=== PATIENT | male | born 1985 | race Hispanic/Latino ===

== ENCOUNTER 2017-08-24 11:44 | Emergency (ER) | payer SELFPAY ==
[2017-08-24 12:06] LABS: APPEARANCE,URINE CLEAR (CLEAR); BILIRUBIN,URINE NEGATIVE (NEGATIVE); COLOR,URINE YELLOW (YELLOW); GLUCOSE, URINE (UA) NEGATIVE (NEGATIVE); KETONES,URINE 5 mg/dL (NEGATIVE); LEUKOCYTE ESTERASE ,URINE NEGATIVE (NEGATIVE); NITRATE,URINE NEGATIVE (NEGATIVE); OCCULT BLOOD,URINE NEGATIVE (NEGATIVE); PROTEIN,URINE NEGATIVE (NEGATIVE); UROBILINOGEN,URINE 0.2 mg/dL (0.2-1.0)
[2017-08-24 12:13] LABS: AMORPHOUS SEDIMENT,UR Trace /LPF (None Seen); BACTERIA,URINE Few /HPF (None Seen); MUCUS,URINE Moderate LPF (None Seen); RBC,URINE None Seen /HPF (0-1); SQUAMOUS EPITHELIAL CELL,UR Few /LPF (0-2); WBC,URINE None Seen /HPF (0-1)
[2017-08-24 12:14] LABS: AMPHET/METH SCREEN,URINE NEGATIVE (NEGATIVE); BARBITURATE SCREEN, URINE NEGATIVE (NEGATIVE); BENZODIAZEPINES SCREEN,URINE NEGATIVE (NEGATIVE); CANNABINOID SCREEN,URINE NEGATIVE (NEGATIVE); COCAINE SCREEN,URINE NEGATIVE (NEGATIVE); OPIATE SCREEN,URINE NEGATIVE (NEGATIVE); PHENCYCLIDINE SCREEN,URINE NEGATIVE (NEGATIVE)
[2017-08-24] MEDS ORDERED: KETOROLAC TROMETHAMINE 60 MG/2 ML VIAL ONE (12:29)
[2017-08-24] MEDS ORDERED: CYCLOBENZAPRINE HCL 10 MG TABLET ONE (12:30)
== END 2017-08-24 13:18 | disposition home or self-care (01) ==
LOC: EDH 11:44
DX: G44.209 Tension-type headache, unspecified, not intractable (principal); Z72.0 Tobacco use
CPT/HCPCS: 80305; 81001; 96372; 99284; J1885

== ENCOUNTER 2020-07-23 10:12 | Emergency (ER) | payer SELFPAY ==
[2020-07-23 11:06] LABS: BASOPHILS % (AUTO) 0.3 % (0.0-5.0); EOSINOPHILS % (AUTO) 1.6 % (0.0-8.0); HEMATOCRIT 36.8 % (42-54); LYMPHOCYTES % (AUTO) 22.2 % (21.0-51.0); MEAN CORPUSCULAR HEMOGLOBIN 25.8 pg (27.0-33.0); MEAN CORPUSCULAR HGB CONC 32.1 g/dL (32.0-36.0); MEAN CORPUSCULAR VOLUME 80.3 fL (79-99); MONOCYTES % (AUTO) 7.5 % (3.0-13.0); PLATELET COUNT (AUTO) 298 K/uL (130-400); RED BLOOD CELL COUNT(AUTO) 4.58 MIL/uL (4.50-6.20); RED CELL DISTRIBUTION WIDTH 13.7 % (11.0-15.5); WHITE BLOOD COUNT (AUTO) 7.5 K/uL (4.8-10.8)
[2020-07-23 11:20] LABS: CREATININE 1.1 mg/dL (0.5-1.5)
[2020-07-23 11:27] LABS: ALBUMIN 3.6 g/dL (3.5-5.0); BILIRUBIN,TOTAL 1.1 mg/dL (0.2-1.0); TOTAL PROTEIN, SERUM 8.3 g/dL (6.0-8.3)
[2020-07-23] MEDS ORDERED: HYDROCODONE/ACETAMINOPHEN 10/325 MG TAB ONE (12:40)
[2020-10-01] MEDS ORDERED: FERR324T4 PO (12:55)
== END 2020-07-23 13:45 | disposition home or self-care (01) ==
LOC: EDH 10:12
DX: M77.41 Metatarsalgia, right foot (principal); Z72.0 Tobacco use
CPT/HCPCS: 36415; 73630; 80053; 83605; 85025; 87040; 87077; 87186

== ENCOUNTER 2020-09-14 16:27 | Emergency (ER) | payer OTHER ==
[2020-09-14] MEDS ORDERED: HYDROCODONE/ACETAMINOPHEN 5/325 MG TAB ONE (17:01)
[2020-09-14] MEDS ORDERED: IBUPROFEN 600 MG TABLET ONE (17:01)
[2020-09-14 17:32] LABS: AMPHET/METH SCREEN,URINE NEGATIVE (NEGATIVE); BARBITURATE SCREEN, URINE NEGATIVE (NEGATIVE); BENZODIAZEPINES SCREEN,URINE NEGATIVE (NEGATIVE); CANNABINOID SCREEN,URINE NEGATIVE (NEGATIVE); COCAINE SCREEN,URINE NEGATIVE (NEGATIVE); OPIATE SCREEN,URINE NEGATIVE (NEGATIVE); PHENCYCLIDINE SCREEN,URINE NEGATIVE (NEGATIVE)
[2020-10-01] MEDS ORDERED: FERR324T4 PO (12:55)
== END 2020-09-14 18:44 | disposition home or self-care (01) ==
LOC: EDH 16:27
DX: S43.204A Unspecified dislocation of right sternoclavicular joint, initial encounter (principal); M10.9 Gout, unspecified; Z72.0 Tobacco use; X50.9XXA Other and unspecified overexertion or strenuous movements or postures, initial encounter; Y93.89 Activity, other specified; Y92.098 Other place in other non-institutional residence as the place of occurrence of the external cause; Y99.8 Other external cause status
CPT/HCPCS: 71045; 73000; 80305

== ENCOUNTER 2020-09-20 02:22 | Inpatient (IN) | payer OTHER ==
[~2020-09-20] VITALS: Ht 170.2 cm; Wt 95.0 kg
[2020-09-20 02:33] LABS: BASOPHILS % (AUTO) 0.1 % (0.0-5.0); EOSINOPHILS % (AUTO) 1.9 % (0.0-8.0); HEMATOCRIT 29.4 % (42-54); MEAN CORPUSCULAR HEMOGLOBIN 23.6 pg (27.0-33.0); MEAN CORPUSCULAR HGB CONC 31.6 g/dL (32.0-36.0); MEAN CORPUSCULAR VOLUME 74.6 fL (79-99); MONOCYTES % (AUTO) 6.9 % (3.0-13.0); NEUTROPHILS % (AUTO) 73.8 % (40.0-77.0); PLATELET COUNT (AUTO) 317 K/uL (130-400); RED BLOOD CELL COUNT(AUTO) 3.94 MIL/uL (4.50-6.20); RED CELL DISTRIBUTION WIDTH 15.5 % (11.0-15.5); WHITE BLOOD COUNT (AUTO) 10.6 K/uL (4.8-10.8)
[2020-09-20] MEDS ORDERED: 0.9%NACL 1000ML 1,000 ML IV ONE ×3 (02:37→07:52)
[2020-09-20] MEDS ORDERED: KETOROLAC 30MG VIAL (30MG/ML) ONE (02:39)
[2020-09-20 02:44] LABS: CREATININE 1.6 mg/dL (0.5-1.5); POTASSIUM 4.1 mmol/L (3.5-5.1)
[2020-09-20 02:45] LABS: INR 1.08 (0.85-1.15); PROTHROMBIN TIME 11.7 SEC (9.6-11.6)
[2020-09-20 02:46] LABS: PARTIAL THROMBOPLASTIN TIME 26.5 SEC (26.3-35.5)
[2020-09-20 02:48] LABS: ALBUMIN 3.1 g/dL (3.5-5.0); BILIRUBIN,TOTAL 0.7 mg/dL (0.2-1.0); TOTAL PROTEIN, SERUM 8.2 g/dL (6.0-8.3); URIC ACID 4.9 mg/dL (2.6-7.2)
[2020-09-20] MEDS ORDERED: ONDANSETRON 4MG INJ ONE (04:04)
[2020-09-20] MEDS ORDERED: HYDROMORPHONE 1 MG INJ ONE (04:05)
[2020-09-20 04:52] LABS: APPEARANCE,URINE TURBID (CLEAR); BILIRUBIN,URINE LARGE (NEGATIVE); GLUCOSE, URINE (UA) 250 mg/dL (NEGATIVE); KETONES,URINE 15 mg/dL (NEGATIVE); LEUKOCYTE ESTERASE ,URINE MODERATE (NEGATIVE); NITRATE,URINE POSITIVE (NEGATIVE); OCCULT BLOOD,URINE LARGE (NEGATIVE); PH,URINE 6.5 (5.0-8.0); PROTEIN,URINE >=300 mg/dL (NEGATIVE)
[2020-09-20 04:56] LABS: COLOR,URINE RED (YELLOW)
[2020-09-20 04:59] LABS: BACTERIA,URINE Few /HPF (None Seen); RBC,URINE Full Field /HPF (0-1); SQUAMOUS EPITHELIAL CELL,UR Rare /HPF (0-2)
[2020-09-20] MEDS ORDERED: CEFTRIAXONE 1G VIAL ONE (05:53)
[2020-09-20] MEDS ORDERED: IOHEXOL 350 MG/ML 100ML INFUS..BTL IV ONE (05:54)
[2020-09-20] MEDS ORDERED: CEFTRIAXONE 1G VIAL IV SCH (07:00)
[2020-09-20] MEDS ORDERED: ONDANSETRON 4MG INJ IV PRN (07:00)
[2020-09-20] MEDS ORDERED: LACTULOSE 20 GM/30 ML UDCUP PO PRN (07:00)
[2020-09-20 07:30] LABS: HEMOGLOBIN A1C 5.9 % (4.0-6.0)
[2020-09-20 07:49] LABS: HEMATOCRIT 25.7 % (42-54)
[2020-09-20] MEDS ORDERED: FAMOTIDINE 20MG VIAL IV ONE (07:51)
[2020-09-20 08:46] LABS: AMPHET/METH SCREEN,URINE NEGATIVE (NEGATIVE); BARBITURATE SCREEN, URINE NEGATIVE (NEGATIVE); BENZODIAZEPINES SCREEN,URINE NEGATIVE (NEGATIVE); CANNABINOID SCREEN,URINE NEGATIVE (NEGATIVE); COCAINE SCREEN,URINE NEGATIVE (NEGATIVE); OPIATE SCREEN,URINE NEGATIVE (NEGATIVE); PHENCYCLIDINE SCREEN,URINE NEGATIVE (NEGATIVE)
[2020-09-20] MEDS: FAMOTIDINE 20MG VIAL IV SCH (09:00)
[2020-09-20] MEDS ORDERED: 0.9% NACL 250ML 250 ML IV ONE (09:54)
[2020-09-20] MEDS ORDERED: MORPHINE 2 MG SYG ONE ×2 (10:33→16:22)
[2020-09-20 14:09] LABS: HEMATOCRIT 27.9 % (42-54)
[2020-09-20] MEDS: 0.9%NACL 1000ML 1,000 ML IV SCH ×3 (15:00→23:00)
[2020-09-20 19:00] VITALS: BP 147/89
[2020-09-20 20:00] VITALS: BP 138/79
[2020-09-20] MEDS: ACETAMINOPHEN 325 MG TAB PO PRN (20:21)
[2020-09-20 21:00] VITALS: BP 128/72
[2020-09-20 21:35] LABS: HEMATOCRIT 28.3 % (42-54)
[2020-09-20 22:00] VITALS: BP 124/71
[2020-09-20 23:00] VITALS: BP 133/65
[2020-09-21] VITALS (35 sets, daily range): BP systolic 112–156; BP diastolic 60–90
[2020-09-21 03:42] LABS: BASOPHILS % (AUTO) 0.1 % (0.0-5.0); EOSINOPHILS % (AUTO) 0.9 % (0.0-8.0); HEMATOCRIT 28.8 % (42-54); MEAN CORPUSCULAR HEMOGLOBIN 24.1 pg (27.0-33.0); MEAN CORPUSCULAR HGB CONC 31.3 g/dL (32.0-36.0); MONOCYTES % (AUTO) 9.8 % (3.0-13.0); NEUTROPHILS % (AUTO) 70.7 % (40.0-77.0); PLATELET COUNT (AUTO) 275 K/uL (130-400); RED BLOOD CELL COUNT(AUTO) 3.74 MIL/uL (4.50-6.20); RED CELL DISTRIBUTION WIDTH 15.3 % (11.0-15.5); WHITE BLOOD COUNT (AUTO) 7.9 K/uL (4.8-10.8)
[2020-09-21 03:53] LABS: CREATININE 1.8 mg/dL (0.5-1.5); POTASSIUM 4.1 mmol/L (3.5-5.1)
[2020-09-21] MEDS: ACETAMINOPHEN 325 MG TAB PO PRN ×3 (04:50→19:31)
[2020-09-21] MEDS: CEFTRIAXONE 1G VIAL IV SCH (05:02)
[2020-09-21] MEDS: 0.9%NACL 1000ML 1,000 ML IV SCH ×4 (05:44→23:19)
[2020-09-21] MEDS: MORPHINE 2 MG SYG IV PRN ×2 (08:30→15:04)
[2020-09-21] MEDS: FAMOTIDINE 20MG VIAL IV SCH (08:30)
[2020-09-21] MEDS ORDERED: LACTATED RINGERS 1000ML 1,000 ML IV ONE (11:44)
[2020-09-21] MEDS ORDERED: LIDOCAINE PF 100MG/5ML (2%) SYRINGE 5ML ONE (12:46)
[2020-09-21] MEDS ORDERED: SUCCINYLCHOLINE 200MG/10ML SYR ONE (12:46)
[2020-09-21] MEDS ORDERED: PROPOFOL 10 MG/ML 20ML VIAL IV ONE (12:47)
[2020-09-21] MEDS ORDERED: FENTANYL CITRATE PF 50 MCG/1 ML 2ML VIAL ONE ×2 (12:47→13:15)
[2020-09-21] MEDS ORDERED: IOHEXOL-350 50ML VIAL IV ONE (13:34)
[2020-09-21] MEDS ORDERED: ONDANSETRON 4MG INJ ONE (13:37)
[2020-09-21 15:42] LABS: HEMATOCRIT 31.1 % (42-54)
[2020-09-21] MEDS: TRAMADOL HCL 50 MG TABLET PO PRN ×2 (18:01→21:22)
[2020-09-22] VITALS (21 sets, daily range): BP systolic 114–136; BP diastolic 68–82
[2020-09-22] MEDS: TRAMADOL HCL 50 MG TABLET PO PRN ×3 (02:38→20:56)
[2020-09-22 04:12] LABS: BASOPHILS % (AUTO) 0.2 % (0.0-5.0); EOSINOPHILS % (AUTO) 0.6 % (0.0-8.0); HEMATOCRIT 29.2 % (42-54); LYMPHOCYTES % (AUTO) 15.2 % (21.0-51.0); MEAN CORPUSCULAR HEMOGLOBIN 24.1 pg (27.0-33.0); MEAN CORPUSCULAR HGB CONC 31.2 g/dL (32.0-36.0); MEAN CORPUSCULAR VOLUME 77.5 fL (79-99); MONOCYTES % (AUTO) 7.7 % (3.0-13.0); NEUTROPHILS % (AUTO) 75.8 % (40.0-77.0); PLATELET COUNT (AUTO) 285 K/uL (130-400); RED BLOOD CELL COUNT(AUTO) 3.77 MIL/uL (4.50-6.20); RED CELL DISTRIBUTION WIDTH 15.5 % (11.0-15.5); WHITE BLOOD COUNT (AUTO) 9.3 K/uL (4.8-10.8)
[2020-09-22 04:19] LABS: CREATININE 1.8 mg/dL (0.5-1.5); POTASSIUM 4.3 mmol/L (3.5-5.1)
[2020-09-22] MEDS: 0.9%NACL 1000ML 1,000 ML IV SCH ×3 (05:11→22:22)
[2020-09-22] MEDS: CEFTRIAXONE 1G VIAL IV SCH (05:13)
[2020-09-22] MEDS: LACTULOSE 20 GM/30 ML UDCUP PO SCH ×3 (08:53→20:45)
[2020-09-22] MEDS: TAMSULOSIN HCL 0.4 MG CAP.ER.24H PO SCH (08:53)
[2020-09-22] MEDS: FERROUS SULFATE 325 MG TABLET.DR PO SCH ×3 (08:53→20:56)
[2020-09-22] MEDS: FAMOTIDINE 20MG VIAL IV SCH (08:53)
[2020-09-22] MEDS: ACETAMINOPHEN 325 MG TAB PO PRN (14:39)
[2020-09-23] VITALS: BP 130/78
[2020-09-23] MEDS: ACETAMINOPHEN 325 MG TAB PO PRN ×2 (01:31→05:37)
[2020-09-23] MEDS: LACTULOSE 20 GM/30 ML UDCUP PO SCH ×4 (02:40→19:55)
[2020-09-23 03:00] VITALS: BP 116/57
[2020-09-23] MEDS: 0.9%NACL 1000ML 1,000 ML IV SCH ×2 (03:35→15:00)
[2020-09-23] MEDS: TRAMADOL HCL 50 MG TABLET PO PRN ×3 (03:36→23:46)
[2020-09-23] MEDS: CEFTRIAXONE 1G VIAL IV SCH (05:02)
[2020-09-23 06:16] LABS: BASOPHILS % (AUTO) 0.1 % (0.0-5.0); HEMATOCRIT 28.2 % (42-54); LYMPHOCYTES % (AUTO) 19.7 % (21.0-51.0); MEAN CORPUSCULAR HEMOGLOBIN 23.7 pg (27.0-33.0); MEAN CORPUSCULAR HGB CONC 30.9 g/dL (32.0-36.0); MEAN CORPUSCULAR VOLUME 76.8 fL (79-99); MONOCYTES % (AUTO) 8.8 % (3.0-13.0); NEUTROPHILS % (AUTO) 69.7 % (40.0-77.0); PLATELET COUNT (AUTO) 298 K/uL (130-400); RED BLOOD CELL COUNT(AUTO) 3.67 MIL/uL (4.50-6.20); RED CELL DISTRIBUTION WIDTH 15.4 % (11.0-15.5); WHITE BLOOD COUNT (AUTO) 7.1 K/uL (4.8-10.8)
[2020-09-23 06:33] LABS: CREATININE 1.4 mg/dL (0.5-1.5); POTASSIUM 3.6 mmol/L (3.5-5.1)
[2020-09-23 07:00] VITALS: BP 126/74
[2020-09-23] MEDS: FERROUS SULFATE 325 MG TABLET.DR PO SCH ×3 (08:41→19:54)
[2020-09-23] MEDS: TAMSULOSIN HCL 0.4 MG CAP.ER.24H PO SCH (08:42)
[2020-09-23] MEDS: FAMOTIDINE 20MG VIAL IV SCH (08:43)
[2020-09-23 11:30] VITALS: BP 119/74
[2020-09-23] MEDS ORDERED: IOHEXOL 350 MG/ML 100ML INFUS..BTL IV ONE (12:28)
[2020-09-23 16:00] VITALS: BP 122/78
[2020-09-23 20:16] VITALS: BP 124/76
[2020-09-24 00:16] VITALS: BP 127/70
[2020-09-24] MEDS: LACTULOSE 20 GM/30 ML UDCUP PO SCH ×4 (02:45→19:56)
[2020-09-24 04:16] VITALS: BP 122/73
[2020-09-24] MEDS: 0.9%NACL 1000ML 1,000 ML IV SCH ×4 (04:56→21:14)
[2020-09-24] MEDS: CEFTRIAXONE 1G VIAL IV SCH (04:57)
[2020-09-24] MEDS: TRAMADOL HCL 50 MG TABLET PO PRN ×3 (04:59→21:03)
[2020-09-24 06:21] LABS: BASOPHILS % (AUTO) 0.3 % (0.0-5.0); EOSINOPHILS % (AUTO) 0.4 % (0.0-8.0); HEMATOCRIT 27.3 % (42-54); LYMPHOCYTES % (AUTO) 18.1 % (21.0-51.0); MEAN CORPUSCULAR HEMOGLOBIN 24.4 pg (27.0-33.0); MEAN CORPUSCULAR HGB CONC 31.9 g/dL (32.0-36.0); MEAN CORPUSCULAR VOLUME 76.7 fL (79-99); MONOCYTES % (AUTO) 8.2 % (3.0-13.0); NEUTROPHILS % (AUTO) 72.4 % (40.0-77.0); PLATELET COUNT (AUTO) 309 K/uL (130-400); RED BLOOD CELL COUNT(AUTO) 3.56 MIL/uL (4.50-6.20); RED CELL DISTRIBUTION WIDTH 15.6 % (11.0-15.5); WHITE BLOOD COUNT (AUTO) 7.7 K/uL (4.8-10.8)
[2020-09-24 06:36] LABS: CREATININE 1.5 mg/dL (0.5-1.5); POTASSIUM 3.8 mmol/L (3.5-5.1)
[2020-09-24 08:00] VITALS: BP 127/71
[2020-09-24] MEDS: TAMSULOSIN HCL 0.4 MG CAP.ER.24H PO SCH (08:45)
[2020-09-24] MEDS: FERROUS SULFATE 325 MG TABLET.DR PO SCH ×3 (08:46→19:58)
[2020-09-24] MEDS: FAMOTIDINE 20MG TAB PO SCH (08:46)
[2020-09-24 12:00] VITALS: BP 124/72
[2020-09-24 16:00] VITALS: BP 122/72
[2020-09-24 16:06] LABS: HEMATOCRIT 29.1 % (42-54)
[2020-09-24 20:16] VITALS: BP 128/79
[2020-09-25 00:13] VITALS: BP 133/82
[2020-09-25] MEDS: LACTULOSE 20 GM/30 ML UDCUP PO SCH ×2 (02:45→09:59)
[2020-09-25 04:27] VITALS: BP 127/71
[2020-09-25] MEDS: CEFTRIAXONE 1G VIAL IV SCH (05:22)
[2020-09-25] MEDS: TRAMADOL HCL 50 MG TABLET PO PRN (05:27)
[2020-09-25 05:34] LABS: BASOPHILS % (AUTO) 0.2 % (0.0-5.0); EOSINOPHILS % (AUTO) 0.7 % (0.0-8.0); HEMATOCRIT 27.4 % (42-54); LYMPHOCYTES % (AUTO) 16.3 % (21.0-51.0); MEAN CORPUSCULAR HEMOGLOBIN 23.9 pg (27.0-33.0); MONOCYTES % (AUTO) 6.6 % (3.0-13.0); NEUTROPHILS % (AUTO) 75.3 % (40.0-77.0); PLATELET COUNT (AUTO) 331 K/uL (130-400); RED BLOOD CELL COUNT(AUTO) 3.56 MIL/uL (4.50-6.20); RED CELL DISTRIBUTION WIDTH 15.7 % (11.0-15.5); WHITE BLOOD COUNT (AUTO) 8.2 K/uL (4.8-10.8)
[2020-09-25 05:49] LABS: CREATININE 1.3 mg/dL (0.5-1.5); POTASSIUM 4.1 mmol/L (3.5-5.1)
[2020-09-25 07:52] VITALS: BP 114/67
[2020-09-25] MEDS: FERROUS SULFATE 325 MG TABLET.DR PO SCH (09:59)
[2020-09-25] MEDS: FAMOTIDINE 20MG TAB PO SCH (09:59)
[2020-09-25] MEDS: TAMSULOSIN HCL 0.4 MG CAP.ER.24H PO SCH (09:59)
[2020-09-25 11:12] VITALS: BP 119/72
[2020-09-25] MEDS ORDERED: AMOX500C2 PO (11:29)
[2020-09-25] MEDS ORDERED: FERR324T4 PO (11:29)
[2020-09-25] MEDS ORDERED: TAMS-1 PO (11:29)
[2020-10-01] MEDS ORDERED: FERR324T4 PO (12:55)
== END 2020-09-25 15:00 | disposition home or self-care (01) | DRG 958 ==
LOC: EDH 02:22 → EDHIP 06:50 → 2DH 19:16 → 3DH 09-23 02:40
PROVIDERS: ADMIT Internal Medicine; ATTEND Internal Medicine
PROC: 0TC68ZZ Extirpation of Matter from Right Ureter, Via Natural or Artificial Opening Endoscopic (ICD-10-PCS; principal; 2020-09-20)
PROC: 0TCB8ZZ Extirpation of Matter from Bladder, Via Natural or Artificial Opening Endoscopic (ICD-10-PCS; 2020-09-20)
PROC: 0T767DZ Dilation of Right Ureter with Intraluminal Device, Via Natural or Artificial Opening (ICD-10-PCS; 2020-09-20)
PROC: BT1D1ZZ Fluoroscopy of Right Kidney, Ureter and Bladder using Low Osmolar Contrast (ICD-10-PCS; 2020-09-20)
PROC: 30233N1 Transfusion of Nonautologous Red Blood Cells into Peripheral Vein, Percutaneous Approach (ICD-10-PCS; 2020-09-20)
DX: S37.011A Minor contusion of right kidney, initial encounter (principal); S36.030A Superficial (capsular) laceration of spleen, initial encounter; D62 Acute posthemorrhagic anemia; E87.1 Hypo-osmolality and hyponatremia; E44.0 Moderate protein-calorie malnutrition; N17.9 Acute kidney failure, unspecified; N10 Acute pyelonephritis; N32.89 Other specified disorders of bladder; R33.8 Other retention of urine; N28.89 Other specified disorders of kidney and ureter; S43.004A Unspecified dislocation of right shoulder joint, initial encounter; R74.8 Abnormal levels of other serum enzymes; M10.9 Gout, unspecified; F17.210 Nicotine dependence, cigarettes, uncomplicated; X58.XXXA Exposure to other specified factors, initial encounter; K21.9 Gastro-esophageal reflux disease without esophagitis; B95.2 Enterococcus as the cause of diseases classified elsewhere; Z68.32 Body mass index [BMI] 32.0-32.9, adult; Y93.89 Activity, other specified; Y92.89 Other specified places as the place of occurrence of the external cause; Y99.8 Other external cause status; Z87.828 Personal history of other (healed) physical injury and trauma; I77.0 Arteriovenous fistula, acquired
CPT/HCPCS: 36415; 71250; 74018; 74174; 74176; 74177; 76705; 76856; 80048; 80053; 80305; 81001; 82150; 83036; 83690; 84550; 85014; 85018; 85025; 85610; 85730; 86850; 86900; 86901; 86923; 87077; 87088; 87186; A4354; C1758; C1769; C2617; G0378; J0330; J0696; J1170; J1885; J2001; J2405; J2704; J3010; J3490; J7030; J7050; J7120; P9016; Q9967

== ENCOUNTER 2020-09-28 00:56 | Inpatient (IN) | payer OTHER ==
[~2020-09-28] VITALS: Ht 170.2 cm; Wt 90.1 kg
[~2020-09-28 00:56] MED LIST: AMOX500C2 PO; FERR324T4 PO; TAMS-1 PO
[2020-09-28 01:22] LABS: BASOPHILS % (AUTO) 0.3 % (0.0-5.0); EOSINOPHILS % (AUTO) 0.3 % (0.0-8.0); HEMATOCRIT 29.2 % (42-54); LYMPHOCYTES % (AUTO) 22.6 % (21.0-51.0); MEAN CORPUSCULAR HEMOGLOBIN 24.5 pg (27.0-33.0); MEAN CORPUSCULAR HGB CONC 31.5 g/dL (32.0-36.0); MEAN CORPUSCULAR VOLUME 77.7 fL (79-99); MONOCYTES % (AUTO) 7.9 % (3.0-13.0); NEUTROPHILS % (AUTO) 67.9 % (40.0-77.0); PLATELET COUNT (AUTO) 453 K/uL (130-400); RED BLOOD CELL COUNT(AUTO) 3.76 MIL/uL (4.50-6.20); RED CELL DISTRIBUTION WIDTH 15.5 % (11.0-15.5); WHITE BLOOD COUNT (AUTO) 8.6 K/uL (4.8-10.8)
[2020-09-28] MEDS ORDERED: 0.9%NACL 1000ML 1,000 ML IV ONE ×2 (01:29→03:11)
[2020-09-28 01:33] LABS: APPEARANCE,URINE CLOUDY (CLEAR); BILIRUBIN,URINE NEGATIVE (NEGATIVE); COLOR,URINE RED (YELLOW); GLUCOSE, URINE (UA) 100 mg/dL (NEGATIVE); KETONES,URINE 15 mg/dL (NEGATIVE); LEUKOCYTE ESTERASE ,URINE MODERATE (NEGATIVE); NITRATE,URINE POSITIVE (NEGATIVE); OCCULT BLOOD,URINE LARGE (NEGATIVE); PH,URINE 8.5 (5.0-8.0); PROTEIN,URINE >=300 mg/dL (NEGATIVE)
[2020-09-28 01:34] LABS: CREATININE 1.2 mg/dL (0.5-1.5); POTASSIUM 4.2 mmol/L (3.5-5.1)
[2020-09-28 01:35] LABS: INR 1.04 (0.85-1.15); PROTHROMBIN TIME 11.3 SEC (9.6-11.6)
[2020-09-28 01:37] LABS: PARTIAL THROMBOPLASTIN TIME 26.1 SEC (26.3-35.5)
[2020-09-28 01:38] LABS: ALBUMIN 3.2 g/dL (3.5-5.0); BILIRUBIN,TOTAL 0.4 mg/dL (0.2-1.0); TOTAL PROTEIN, SERUM 8.2 g/dL (6.0-8.3)
[2020-09-28 01:54] LABS: BACTERIA,URINE Few /HPF (None Seen); RBC,URINE TNTC /HPF (0-1)
[2020-09-28] MEDS ORDERED: MORPHINE 4 MG SYG ONE (03:09)
[2020-09-28] MEDS ORDERED: ONDANSETRON 4MG INJ ONE (03:09)
[2020-09-28] MEDS ORDERED: CEFTRIAXONE 1G VIAL ONE (03:09)
[2020-09-28] MEDS ORDERED: 0.9%NACL 50ML 50 ML IV ONE (03:10)
[2020-09-28] MEDS ORDERED: NITROGLYCERIN 0.4 MG SL TAB SL PRN (03:45)
[2020-09-28] MEDS ORDERED: ACETAMINOPHEN 325 MG TAB PO PRN (03:45)
[2020-09-28] MEDS ORDERED: MORPHINE 2 MG SYG IVP ONE (04:00)
[2020-09-28] MEDS ORDERED: MORPHINE 2 MG SYG ONE ×2 (04:04→06:40)
[2020-09-28] MEDS ORDERED: MORPHINE 2 MG SYG IM PRN (04:15)
[2020-09-28 04:51] LABS: % IRON SATURATION 17.4 % (30-44)
[2020-09-28] MEDS: FAMOTIDINE 20MG TAB PO SCH ×2 (09:00→20:48)
[2020-09-28] MEDS ORDERED: FAMOTIDINE 20MG TAB ONE (09:04)
[2020-09-28] MEDS ORDERED: HYDROMORPHONE 0.5 MG SYG (0.5MG/0.5ML) IVP SCH ×2 (09:30→19:45)
[2020-09-28] MEDS ORDERED: HYDROMORPHONE 0.5 MG SYG (0.5MG/0.5ML) ONE ×2 (09:31→19:48)
[2020-09-28 09:56] LABS: HEMATOCRIT 27.7 % (42-54)
[2020-09-28 12:30] VITALS: BP 149/86
[2020-09-28] MEDS: 0.9%NACL 1000ML 1,000 ML IV SCH ×2 (13:32→13:45)
[2020-09-28 15:40] LABS: HEMATOCRIT 25.8 % (42-54)
[2020-09-28 17:08] VITALS: BP 132/80
[2020-09-28] MEDS: MORPHINE 2 MG SYG IV PRN ×2 (18:51→23:23)
[2020-09-28 20:00] VITALS: BP 106/70
[2020-09-28 21:44] LABS: HEMATOCRIT 25.7 % (42-54)
[2020-09-29] VITALS (12 sets, daily range): BP systolic 108–126; BP diastolic 61–78
[2020-09-29] MEDS: MORPHINE 2 MG SYG IV PRN ×4 (04:13→19:40)
[2020-09-29 04:49] LABS: BASOPHILS % (AUTO) 0.4 % (0.0-5.0); EOSINOPHILS % (AUTO) 0.3 % (0.0-8.0); HEMATOCRIT 25.9 % (42-54); LYMPHOCYTES % (AUTO) 20.1 % (21.0-51.0); MEAN CORPUSCULAR HEMOGLOBIN 24.1 pg (27.0-33.0); MEAN CORPUSCULAR HGB CONC 30.9 g/dL (32.0-36.0); MONOCYTES % (AUTO) 8.6 % (3.0-13.0); NEUTROPHILS % (AUTO) 69.7 % (40.0-77.0); PLATELET COUNT (AUTO) 459 K/uL (130-400); RED BLOOD CELL COUNT(AUTO) 3.32 MIL/uL (4.50-6.20); RED CELL DISTRIBUTION WIDTH 15.5 % (11.0-15.5); WHITE BLOOD COUNT (AUTO) 7.9 K/uL (4.8-10.8)
[2020-09-29 05:11] LABS: ALBUMIN 2.7 g/dL (3.5-5.0); BILIRUBIN,TOTAL 0.5 mg/dL (0.2-1.0); CREATININE 1.5 mg/dL (0.5-1.5); POTASSIUM 4.4 mmol/L (3.5-5.1); TOTAL PROTEIN, SERUM 7.2 g/dL (6.0-8.3)
[2020-09-29] MEDS: 0.9%NACL 1000ML 1,000 ML IV SCH ×3 (08:47→20:38)
[2020-09-29] MEDS: FAMOTIDINE 20MG TAB PO SCH ×2 (08:47→19:40)
[2020-09-29] MEDS ORDERED: IODIXANOL 320 MG/ML 100 ML VIAL ONE ×2 (12:11→12:42)
[2020-09-29] MEDS ORDERED: LIDOCAINE HCL 1% MDV 50ML VIAL ONE (12:11)
[2020-09-29] MEDS ORDERED: MIDAZOLAM HCL 1 MG/ML 2ML VIAL ONE (12:47)
[2020-09-29] MEDS ORDERED: FENTANYL CITRATE PF 50 MCG/1 ML 2ML VIAL ONE (12:48)
[2020-09-29] MEDS: ACETAMINOPHEN 325 MG TAB PO PRN (18:12)
[2020-09-29] MEDS: FERROUS SULFATE 325 MG TABLET.DR PO SCH (19:40)
[2020-09-29] MEDS: ONDANSETRON 4MG INJ IV PRN (20:39)
[2020-09-30] VITALS (7 sets, daily range): BP systolic 123–139; BP diastolic 75–84
[2020-09-30] MEDS: MORPHINE 2 MG SYG IV PRN ×5 (02:50→21:38)
[2020-09-30] MEDS: 0.9%NACL 1000ML 1,000 ML IV SCH ×2 (04:54→15:51)
[2020-09-30 05:38] LABS: BASOPHILS % (AUTO) 0.2 % (0.0-5.0); LYMPHOCYTES % (AUTO) 16.6 % (21.0-51.0); MEAN CORPUSCULAR HEMOGLOBIN 24.3 pg (27.0-33.0); MEAN CORPUSCULAR HGB CONC 31.6 g/dL (32.0-36.0); MEAN CORPUSCULAR VOLUME 76.9 fL (79-99); MONOCYTES % (AUTO) 7.2 % (3.0-13.0); NEUTROPHILS % (AUTO) 75.3 % (40.0-77.0); PLATELET COUNT (AUTO) 444 K/uL (130-400); RED BLOOD CELL COUNT(AUTO) 3.25 MIL/uL (4.50-6.20); RED CELL DISTRIBUTION WIDTH 15.6 % (11.0-15.5); WHITE BLOOD COUNT (AUTO) 8.7 K/uL (4.8-10.8)
[2020-09-30 06:13] LABS: CREATININE 1.5 mg/dL (0.5-1.5); POTASSIUM 3.8 mmol/L (3.5-5.1)
[2020-09-30] MEDS: FAMOTIDINE 20MG TAB PO SCH ×2 (08:25→20:38)
[2020-09-30] MEDS: CEFTRIAXONE 1G VIAL IV SCH (08:25)
[2020-09-30] MEDS: FERROUS SULFATE 325 MG TABLET.DR PO SCH ×2 (08:25→20:38)
[2020-09-30] MEDS: ACETAMINOPHEN 325 MG TAB PO PRN (10:53)
[2020-09-30] MEDS ORDERED: MAGNESIUM CITRATE 296 ML SOLUTION PO SCH (11:30)
[2020-09-30] MEDS: LACTULOSE 20 GM/30 ML UDCUP PO SCH ×2 (11:54→20:38)
[2020-09-30] MEDS: ONDANSETRON 4MG INJ IV PRN ×2 (14:00→21:37)
[2020-09-30] MEDS: DOCUSATE SODIUM 100 MG CAP PO SCH (20:37)
[2020-10-01] MEDS: MORPHINE 2 MG SYG IV PRN ×3 (00:54→11:50)
[2020-10-01] MEDS: 0.9%NACL 1000ML 1,000 ML IV SCH ×2 (01:45→11:49)
[2020-10-01] MEDS: LACTULOSE 20 GM/30 ML UDCUP PO SCH ×2 (03:27→11:30)
[2020-10-01 04:01] VITALS: BP 114/78
[2020-10-01 05:16] LABS: BASOPHILS % (AUTO) 0.3 % (0.0-5.0); EOSINOPHILS % (AUTO) 0.1 % (0.0-8.0); HEMATOCRIT 24.9 % (42-54); LYMPHOCYTES % (AUTO) 12.6 % (21.0-51.0); MEAN CORPUSCULAR HEMOGLOBIN 24.3 pg (27.0-33.0); MEAN CORPUSCULAR HGB CONC 31.7 g/dL (32.0-36.0); MEAN CORPUSCULAR VOLUME 76.6 fL (79-99); MONOCYTES % (AUTO) 8.2 % (3.0-13.0); NEUTROPHILS % (AUTO) 78.2 % (40.0-77.0); PLATELET COUNT (AUTO) 414 K/uL (130-400); RED BLOOD CELL COUNT(AUTO) 3.25 MIL/uL (4.50-6.20); RED CELL DISTRIBUTION WIDTH 15.9 % (11.0-15.5); WHITE BLOOD COUNT (AUTO) 11.6 K/uL (4.8-10.8)
[2020-10-01 07:24] VITALS: BP 115/70
[2020-10-01] MEDS: DOCUSATE SODIUM 100 MG CAP PO SCH (08:25)
[2020-10-01] MEDS: CEFTRIAXONE 1G VIAL IV SCH (08:25)
[2020-10-01] MEDS: FERROUS SULFATE 325 MG TABLET.DR PO SCH (08:25)
[2020-10-01] MEDS: FAMOTIDINE 20MG TAB PO SCH (08:25)
[2020-10-01 11:16] VITALS: BP 122/77
[2020-10-01] MEDS: ACETAMINOPHEN 325 MG TAB PO PRN (11:50)
[2020-10-01] MEDS ORDERED: FERR324T4 PO ×2 (12:55)
[2020-10-01] MEDS ORDERED: COMPOUND IV MISC 1 EACH IVSOLN MISC PRN (13:00)
[2020-10-01] MEDS ORDERED: EPOETIN ALFA-EPBX (NON-ESRD) 10,000 UNIT/ML VIAL SQ SCH (13:00)
[2020-10-02] MEDS ORDERED: IRON SUCROSE COMPLEX 300 MG in 0.9%NACL 50ML 50 ML IV SCH (09:00)
== END 2020-10-01 15:10 | disposition home or self-care (01) | DRG 271 ==
LOC: EDH 00:56 → EDHIP 03:52 → 3CH 11:04
PROVIDERS: ADMIT Hospitalist; ATTEND Hospitalist
PROC: 3E1K78Z Irrigation of Genitourinary Tract using Irrigating Substance, Via Natural or Artificial Opening (ICD-10-PCS; principal; 2020-09-29)
PROC: 04L93DZ Occlusion of Right Renal Artery with Intraluminal Device, Percutaneous Approach (ICD-10-PCS; 2020-09-29)
PROC: B410YZZ Fluoroscopy of Abdominal Aorta using Other Contrast (ICD-10-PCS; 2020-09-29)
PROC: B416YZZ Fluoroscopy of Right Renal Artery using Other Contrast (ICD-10-PCS; 2020-09-29)
PROC: B41FYZZ Fluoroscopy of Right Lower Extremity Arteries using Other Contrast (ICD-10-PCS; 2020-09-29)
DX: I77.0 Arteriovenous fistula, acquired (principal); N39.0 Urinary tract infection, site not specified; I72.2 Aneurysm of renal artery; N32.89 Other specified disorders of bladder; N28.89 Other specified disorders of kidney and ureter; Z20.822 Contact with and (suspected) exposure to COVID-19; D50.9 Iron deficiency anemia, unspecified; R00.0 Tachycardia, unspecified; K59.00 Constipation, unspecified; M10.9 Gout, unspecified; Z96.0 Presence of urogenital implants; F17.210 Nicotine dependence, cigarettes, uncomplicated; Z79.899 Other long term (current) drug therapy
CPT/HCPCS: 36251; 36415; 37244; 76857; 80048; 80053; 81001; 82728; 83540; 83550; 83605; 83735; 84484; 85014; 85018; 85025; 85610; 85730; 87040; 87088; 93005; 99156; 99157; C1760; C1769; C1887; C1894; G0378; J0696; J1170; J1644; J1756; J2250; J2270; J2405; J3010; J3490; J7030; Q9967; U0003

== ENCOUNTER 2020-10-25 11:19 | Emergency (ER) | payer OTHER ==
[2020-10-25 12:46] LABS: BASOPHILS % (AUTO) 0.2 % (0.0-5.0); EOSINOPHILS % (AUTO) 0.6 % (0.0-8.0); HEMATOCRIT 33.6 % (42-54); LYMPHOCYTES % (AUTO) 22.7 % (21.0-51.0); MEAN CORPUSCULAR HEMOGLOBIN 24.5 pg (27.0-33.0); MEAN CORPUSCULAR HGB CONC 30.7 g/dL (32.0-36.0); MONOCYTES % (AUTO) 10.9 % (3.0-13.0); NEUTROPHILS % (AUTO) 65.3 % (40.0-77.0); PLATELET COUNT (AUTO) 243 K/uL (130-400); RED CELL DISTRIBUTION WIDTH 16.4 % (11.0-15.5); WHITE BLOOD COUNT (AUTO) 6.3 K/uL (4.8-10.8)
[2020-10-25 12:56] LABS: CREATININE 1.2 mg/dL (0.5-1.5)
[2020-10-25 13:03] LABS: ALBUMIN 3.6 g/dL (3.5-5.0); BILIRUBIN,TOTAL 1.1 mg/dL (0.2-1.0); TOTAL PROTEIN, SERUM 8.4 g/dL (6.0-8.3)
[2020-10-25 13:31] LABS: INR 1.11 (0.85-1.15); PARTIAL THROMBOPLASTIN TIME 27.4 SEC (26.3-35.5); PROTHROMBIN TIME 11.4 SEC (9.6-11.6)
== END 2020-10-25 13:51 | disposition home or self-care (01) ==
LOC: EDH 11:19
DX: D64.9 Anemia, unspecified (principal); R00.0 Tachycardia, unspecified; R00.2 Palpitations; Z87.891 Personal history of nicotine dependence
CPT/HCPCS: 36415; 71045; 80053; 82550; 84484; 85025; 85610; 85730; 86850; 86900; 86901; 93005

== ENCOUNTER → 2021-01-01 | Outpatient (CLI) | payer OTHER | END | disposition home or self-care (01) | LOC: RAH 11:29 | PROVIDERS: ATTEND Urology | DX: M54.5 Low back pain (principal) | CPT/HCPCS: 76770 ==

== ENCOUNTER → 2021-10-26 | Outpatient (CLI) | payer OTHER | END | disposition home or self-care (01) | LOC: SHCH 14:23 | PROVIDERS: ATTEND Internal Medicine Cardiovascular Disease | DX: Z95.4 Presence of other heart-valve replacement (principal); Z95.2 Presence of prosthetic heart valve | CPT/HCPCS: 93306 ==

== ENCOUNTER → 2022-02-19 | Outpatient (CLI) | payer OTHER ==
[~2022-02-19] MED LIST changes: +IOHEXOL 350 MG/ML 100ML INFUS..BTL IV ONE; +IOHEXOL-350 50ML VIAL IV ONE
== END | disposition home or self-care (01) ==
LOC: RAH 09:48
PROVIDERS: ATTEND Internal Medicine Cardiovascular Disease
DX: I73.9 Peripheral vascular disease, unspecified (principal)
CPT/HCPCS: 75635; Q9967 ×4

== ENCOUNTER → 2022-12-19 | Outpatient (CLI) | payer OTHER, MEDICAID ==
[~2022-12-19] MED LIST changes: -IOHEXOL 350 MG/ML 100ML INFUS..BTL IV ONE; -IOHEXOL-350 50ML VIAL IV ONE
== END | disposition home or self-care (01) ==
LOC: RAH 15:30
PROVIDERS: ATTEND Nurse Practitioner Family
DX: N50.819 Testicular pain, unspecified (principal)
CPT/HCPCS: 76870

== ENCOUNTER → 2023-01-30 | Outpatient (CLI) | payer OTHER, MEDICAID | END | disposition home or self-care (01) | LOC: RAH 10:19 | PROVIDERS: ATTEND Nurse Practitioner Family | DX: N50.819 Testicular pain, unspecified (principal) | CPT/HCPCS: 76770 ==

== ENCOUNTER 2023-02-25 00:49 | Emergency (ER) | payer OTHER, MEDICAID ==
[~2023-02-25] VITALS: Ht 170.2 cm; Wt 124.7 kg
[2023-02-25 00:50] VITALS: BP 156/84; PULSE 94; RESP 20
[2023-02-25] MEDS ORDERED: SOLU-MEDROL 125MG VIAL IVP ONE (01:30)
[2023-02-25] MEDS ORDERED: DiphenhydrAMINE HCL 50 MG/ML VIAL IV ONE (01:30)
[2023-02-25] MEDS ORDERED: FAMOTIDINE 20MG VIAL IV ONE (01:30)
[2023-02-25 02:39] LABS: INR 3.47 (0.85-1.15)
[2023-02-25 02:40] LABS: PARTIAL THROMBOPLASTIN TIME 50.4 SEC (26.3-35.5)
[2023-02-25 03:07] LABS: PROTHROMBIN TIME 37.1 SEC (9.6-11.6)
[2023-02-25] MEDS ORDERED: DIPH25TA51 PO (03:12)
[2023-02-25] MEDS ORDERED: PRED20TA3 PO ×2 (03:12→03:14)
[2023-02-25] MEDS ORDERED: FAMO-136 PO (03:12)
== END 2023-02-25 04:21 | disposition home or self-care (01) ==
LOC: EDH 00:49
DX: T78.49XA Other allergy, initial encounter (principal); I10 Essential (primary) hypertension; E78.00 Pure hypercholesterolemia, unspecified; Z79.899 Other long term (current) drug therapy; Z98.890 Other specified postprocedural states; X58.XXXA Exposure to other specified factors, initial encounter
CPT/HCPCS: 99284; 96374; 96375; 85610; 85730; 36415; J3490; J1200; J2930

== ENCOUNTER 2023-12-08 08:24 | Day surgery (SDC) | payer MEDICARE ==
[2023-12-05 14:55] LABS: BASOPHILS # (AUTO) 0.03 K/uL (0.00-0.20); BASOPHILS % (AUTO) 0.4 % (0.0-5.0); EOSINOPHILS # (AUTO) 0.25 K/uL (0.00-0.70); EOSINOPHILS % (AUTO) 3.1 % (0.0-8.0); HEMATOCRIT 42.3 % (42-54); IMMATURE GRANULOCYTE ABSOLUTE 0.03 K/uL (0-1); LYMPHOCYTES % (AUTO) 25.3 % (21.0-51.0); MEAN CORPUSCULAR HEMOGLOBIN 29.2 pg (27.0-33.0); MEAN CORPUSCULAR HGB CONC 33.3 g/dL (32.0-36.0); MEAN CORPUSCULAR VOLUME 87.6 fL (79-99); MONOCYTES # (AUTO) 0.5 K/uL (0.1-1.0); MONOCYTES % (AUTO) 6.5 % (3.0-13.0); NEUTROPHILS # (AUTO) 5.1 K/uL (1.8-7.7); NEUTROPHILS % (AUTO) 64.3 % (40.0-77.0); PLATELET COUNT (AUTO) 254 K/uL (130-400); RED BLOOD CELL COUNT(AUTO) 4.83 MIL/uL (4.50-6.20); RED CELL DISTRIBUTION WIDTH 14.5 % (11.0-15.5)
[2023-12-05 15:16] LABS: ADD UA MICROSCOPIC YES; APPEARANCE,URINE CLOUDY (CLEAR); BILIRUBIN,URINE NEGATIVE (NEGATIVE); COLOR,URINE LIGHT-ORANGE (YELLOW); GLUCOSE, URINE (UA) NEGATIVE (NEGATIVE); KETONES,URINE NEGATIVE (NEGATIVE); LEUKOCYTE ESTERASE ,URINE 25 Leu/uL (NEGATIVE); NITRATE,URINE NEGATIVE (NEGATIVE); OCCULT BLOOD,URINE LARGE (NEGATIVE); PROTEIN,URINE 50 mg/dL (NEGATIVE); UROBILINOGEN,URINE 0.2 mg/dL (0.2-1.0)
[2023-12-05 15:18] LABS: INR 2.46 (0.85-1.15); PARTIAL THROMBOPLASTIN TIME 46.1 SEC (26.3-35.5); PROTHROMBIN TIME 24.8 SEC (9.6-11.6)
[2023-12-05 15:21] LABS: CREATININE 1.1 mg/dL (0.5-1.3)
[2023-12-05 15:54] VITALS: BP 127/82; PULSE 93; RESP 19
[2023-12-05 16:53] LABS: BACTERIA,URINE RARE /HPF (None Seen); MUCUS,URINE RARE LPF (None Seen); RBC,URINE >100 /HPF (0-1); SQUAMOUS EPITHELIAL CELL,UR RARE /HPF (0-2); UNCLASSIFIED CRYSTAL 3 /HPF (None Seen); YEAST,URINE BUDDING RARE /HPF (None Seen)
[~2023-12-08] VITALS: Ht 170.2 cm; Wt 123.6 kg
[2023-12-08] VITALS (10 sets, daily range): BP systolic 123–152; BP diastolic 79–93; PULSE 56–80; RESP 15–18
[~2023-12-08 08:24] MED LIST changes: +DIPH25TA51 PO; +FAMO-136 PO; +PRED20TA3 PO
[2023-12-08] MEDS ORDERED: DONE5TAB33 PO (09:31)
[2023-12-08] MEDS ORDERED: ATOR10 PO (09:31)
[2023-12-08] MEDS ORDERED: BACL20TA PO (09:31)
[2023-12-08] MEDS ORDERED: FOLI1 PO (09:31)
[2023-12-08] MEDS ORDERED: METO-409 PO (09:31)
[2023-12-08] MEDS ORDERED: WARF2.5T9 PO (09:31)
[2023-12-08] MEDS ORDERED: WARF5TAB8 PO (09:31)
[2023-12-08] MEDS ORDERED: CILO100T3 PO (09:31)
[2023-12-08] MEDS ORDERED: LEVO25CA4 PO (09:31)
[2023-12-08] MEDS ORDERED: FERS325 PO (09:31)
[2023-12-08] MEDS ORDERED: SERT-439 PO (09:31)
[2023-12-08] MEDS ORDERED: PANT40TA54 PO (09:31)
[2023-12-08 09:38] LABS: INR 1.49 (0.85-1.15); PARTIAL THROMBOPLASTIN TIME 30.4 SEC (26.3-35.5); PROTHROMBIN TIME 15.5 SEC (9.6-11.6)
[2023-12-08] MEDS ORDERED: CEFTRIAXONE 1G VIAL ONE (12:48)
[2023-12-08] MEDS ORDERED: HEPARIN 10,000 UNIT/10ML (1,000 UNIT/ML) VIAL ONE (13:13)
[2023-12-08] MEDS ORDERED: MIDAZOLAM HCL 1 MG/ML 2ML VIAL ONE (13:13)
[2023-12-08] MEDS ORDERED: FENTANYL CITRATE PF 50 MCG/1 ML 2ML VIAL ONE (13:13)
[2023-12-08] MEDS ORDERED: IODIXANOL 320 MG/ML 100 ML VIAL ONE ×2 (13:13→14:25)
[2023-12-08] MEDS ORDERED: LIDOCAINE HCL 1% MDV 50ML VIAL ONE (13:15)
== END 2023-12-08 18:35 | disposition home or self-care (01) ==
LOC: DAH 08:24
PROVIDERS: ATTEND Urology
DX: R31.0 Gross hematuria (principal); I26.99 Other pulmonary embolism without acute cor pulmonale; N28.0 Ischemia and infarction of kidney; Q25.72 Congenital pulmonary arteriovenous malformation; R10.9 Unspecified abdominal pain; M10.9 Gout, unspecified; F17.210 Nicotine dependence, cigarettes, uncomplicated
CPT/HCPCS: 80048; 85025; 85610 ×2; 85730 ×2; 87086; 81001; 36415 ×2; 93005; 37242; 36251; 76770; A6260; C1769; C1894 ×2; C1887 ×2; C1760; J3010; J0696; J2250; J1644 ×2; J3490; Q9967; A4215; A4222; A4221; A4663; A4216; A4606; A4223 ×3; 99156; 99157